=== PATIENT | male | born 1975 | race Caucasian/White ===

== ENCOUNTER 2016-04-06 10:52 | Emergency (ER) | payer SELFPAY ==
--- NOTE | 2016-04-06 11:14 | ER Document Report ---
ED Medical Screen (RME) - General Stated Complaint: HEAD PAIN Notes: pt works in construction, he was helping someone move a ladder when a calking gun fell and hit him in the back of the head. has a visible hematoma denies LOC admits to headache, difficulty concentrating, nausea last tetanus was 2004 TRAVEL OUTSIDE OF THE [place] IN LAST 30 DAYS: No - Related Data Allergies/Adverse Reactions: bees Allergy (Uncoded 04/06/16 11:09) Past Medical History - Immunizations Hx Diphtheria, Pertussis, Tetanus Vaccination: No
[2016-04-06] MEDS ORDERED: KETOROLAC TROMETHAMINE 60 MG/2 ML SDV IM ONE (11:51)
[2016-04-06] MEDS ORDERED: HYDROCODONE/ACETAMINOPHEN 5-325 MG TABLET PO ONE (11:51)
--- NOTE | 2016-04-06 11:58 | ER Document Report ---
Addendum entered and electronically signed by СЕРГЕЙ TUCKER FNP 12:03: Discharge Plan: follow up with PMD Original Note: ED Headache - General Chief Complaint: Head Injury Stated Complaint: HEAD PAIN Mode of Arrival: Ambulatory Information source: Patient TRAVEL OUTSIDE OF THE [place] IN LAST 30 DAYS: No - HPI Patient complains to provider of: Headache, Other - This 40-year-old male presents to the emergency room today stating he has pain to the left or aspect of the occiput after a cough during fell off of a 10 foot ladder striking him in the head he had no loss of consciousness no nausea nor vomiting after the incident.. No: "Migraine", Facial pain Patient reports: No: Brain neoplasm, Congenital anomally, Frequent migraines, Prior CVA, Prior neurologic eval Onset: Just prior to arrival Timing: Better Quality of pain: Achy, Dull - Related Data Allergies/Adverse Reactions: bees Allergy (Uncoded 04/06/16 11:09) Past Medical History - Social History Smoking Status: Current Every Day Smoker Chew tobacco use (# tins/day): No Frequency of alcohol use: Social Drug Abuse: None Family History: Reviewed & Not Pertinent Patient has suicidal ideation: No Patient has homicidal ideation: No Renal/ Medical History: Denies: Hx Peritoneal Dialysis - Immunizations Hx Diphtheria, Pertussis, Tetanus Vaccination: No Review of Systems - Review of Systems Constitutional: No symptoms reported EENT: No symptoms reported, Other - 2 x 3 cm hematoma to the left rear aspect of the occiput.. denies: Eye discharge, Blurred vision, Tearing, Double vision , Vertigo Cardiovascular: No symptoms reported Respiratory: No symptoms reported Gastrointestinal: No symptoms reported Genitourinary: No symptoms reported Male Genitourinary: No symptoms reported Musculoskeletal: No symptoms reported Skin: No symptoms reported Hematologic/Lymphatic: No symptoms reported Neurological/Psychological: No symptoms reported Physical Exam - Vital signs Vitals: Temp Pulse Resp BP Pulse Ox 97.9 F 99 16 176/101 H 98 04/06/16 11:09 04/06/16 11:09 04/06/16 11:09 04/06/16 11:09 04/06/16 11:09 Interpretation: Normal - General General appearance: Appears well, Alert - HEENT Head: Normocephalic, Atraumatic Eyes: Normal Pupils: PERRL - Respiratory Respiratory status: No respiratory distress Chest status: Nontender Breath sounds: Normal Chest palpation: Normal - Cardiovascular Rhythm: Regular Heart sounds: Normal auscultation Murmur: No - Abdominal Inspection: Normal Distension: No distension Bowel sounds: Normal Tenderness: Nontender Organomegaly: No organomegaly - Back Back: Normal, Nontender - Extremities General upper extremity: Normal inspection, Nontender, Normal color, Normal ROM , Normal temperature General lower extremity: Normal inspection, Nontender, Normal color, Normal ROM , Normal temperature, Normal weight bearing. No: Shannon's sign - Neurological Neuro grossly intact: Yes Cognition: Normal Orientation: AAOx4 [place] Coma Scale Eye Opening: Spontaneous [place] Coma Scale Verbal: Oriented [place] Coma Scale Motor: Obeys Commands Magaly Coma Scale Total: 15 Speech: Normal Motor strength normal: LUE, RUE, LLE, RLE Sensory: Normal - Psychological Associated symptoms: Normal affect, Normal mood - Skin Skin Temperature: Warm - 2 x 3 cm hematoma to the liver aspect of the ociput Skin Moisture: Dry Skin Color: Normal Course - Re-evaluation Re-evalutation: 04/06/16 11:56 Patient no loss of consciousness no nausea no vomiting no vertigo does have pain to the left rear aspect of his occiput some light sensitivity no true photophobia no fever no petechiae. - Vital Signs Vital signs: Temp Pulse Resp BP Pulse Ox 97.9 F 99 16 176/101 H 98 04/06/16 11:09 04/06/16 11:09 04/06/16 11:04/06/16 11:04/06/16 11:04/06/16 11:56 - Diagnostic Test Radiology reviewed: Reports reviewed Discharge - Discharge Clinical Impression: sed head injury Condition: Good Disposition: HOME, SELF-CARE Instructions: Head Injury Precautions ([facility]) Additional Instructions: HEADACHE: The physician does not feel that the headache you are experiencing has a serious underlying cause. Most headaches are due to emotional stress, with resultant muscle tension (tension headache). Occasionally, headaches are secondary to changes in the blood vessels of the scalp (vascular headache and migraine headache). Sometimes, a headache is the first symptom of another developing illness, such as a viral infection. You have no evidence of stroke, bleeding, meningitis, or other serious cause of your headache. The treatment of headaches varies with the severity and cause of the pain. Not all headaches need pain shots. In fact, there is evidence that using narcotics for headaches may make them worse in the long run. The physician will determine the therapy that's in your best interest. If you develop a fever, if the headache is different from any you've previously experienced, or if the headache progressively worsens, then call your physician at once or go to the emergency room. TORADOL INJECTION: You have been given an injection of ketorolac tromethamine (Toradol). This is an excellent, safe drug for pain control. It also has potent antiinflammatory action. You should have significant pain relief within about one hour. Toradol is not addicting and is non-sedating. It does not interfere with driving or work. Call or return if you develop itching, hives, shortness of breath, or rash. ORAL NARCOTIC MEDICATION: You have been given a prescription for pain control. This medication is a narcotic. It's best taken with food, as nausea can result if taken on an empty stomach. Don't operate machinery or drive within six hours of taking this medication. Do not combine this medicine with alcohol, or with any medication which can cause sedation (such as cold tablets or sleeping pills) unless you get permission from the physician. Narcotics tend to cause constipation. If possible, drink plenty of fluids and eat a diet high in fiber and fruits. Please be aware that prescription narcotics also have the potential for abuse. People become addicted to these medications because of the general sense of wellbeing that they induce. This feeling along with a significant reduction in tension, anxiety, and aggression provides a stimulating seductive quality to these drugs. Once your pain is under control, we encourage you to discard your unused narcotics. FOLLOW-UP CARE: If you have been referred to a physician for follow-up care, call the physician s office for an appointment as you were instructed or within the next two days. If you experience worsening or a significant change in your symptoms, notify the physician immediately or return to the Emergency Department at any time for re-evaluation. Prescriptions: Hydrocodone/Acetaminophen [Shoals 5-325 Tablet] 1 each PO Q4 PRN #20 tablet PRN Reason: Naproxen Sodium [Naproxen Sodium ER] 500 mg PO Q12 PRN #20 tablet.sa PRN Reason: Forms: Parent Work Note
[2016-04-06 12:28] VITALS: BP 165/101
== END 2016-04-06 12:29 | disposition home or self-care (01) ==
LOC: ER 10:52
DX: S09.90XA Unspecified injury of head, initial encounter (principal); R51 Headache; R05 Cough; W11.XXXA Fall on and from ladder, initial encounter; F17.210 Nicotine dependence, cigarettes, uncomplicated
CPT/HCPCS: 99283; 96372; 70450; J1885

== ENCOUNTER 2017-11-03 15:50 | Emergency (ER) | payer SELFPAY ==
[2017-11-03] MEDS ORDERED: NORMAL SALINE 1000 ML 1,000 ML IV ONE (16:54)
[2017-11-03] MEDS ORDERED: KETOROLAC TROMETHAMINE INJ/PF 30 MG/1 ML SDV IV ONE (16:55)
--- NOTE | 2017-11-03 16:59 | ER Document Report ---
ED Medical Screen (RME) - General Chief Complaint: Flank Pain Stated Complaint: FLANK PAIN Time Seen by Provider: 11/03/17 16:53 Mode of Arrival: Medic Information source: Patient TRAVEL OUTSIDE OF THE [place] IN LAST 30 DAYS: No - HPI Patient complains to provider of: L flank pain Onset: This morning - Pt. with onset of L flank pain and hematuria starting earlier today. Has h/o kidney stones - Related Data Allergies/Adverse Reactions: bees Allergy (Uncoded 11/03/17 15:50) Past Medical History - Social History Chew tobacco use (# tins/day): No Frequency of alcohol use: Rare Drug Abuse: None Renal/ Medical History: Denies: Hx Peritoneal Dialysis - Immunizations Hx Diphtheria, Pertussis, Tetanus Vaccination: No Physical Exam - Vital signs Vitals: Temp Pulse Resp BP Pulse Ox 98.7 F 76 20 179/108 H 96 11/03/17 16:06 11/03/17 16:06 11/03/17 16:06 11/03/17 16:06 11/03/17 16:06 Course - Vital Signs Vital signs: Temp Pulse Resp BP Pulse Ox 98.7 F 76 20 179/108 H 96 11/03/17 16:06 11/03/17 16:06 11/03/17 16:06 11/03/17 16:06 11/03/17 16:06
--- NOTE | 2017-11-03 17:48 | RADIOLOGY REPORT (SQ) ---
EXAM DESCRIPTION: CT LTD RENAL STONE PROTOCOL ON COMPLETED DATE/TIME: 11/03/2017 5:09 pm REASON FOR STUDY: L flank pain COMPARISON: CT abdomen and pelvis 04/29/2010. TECHNIQUE: CT scan of the abdomen and pelvis performed without intravenous or oral contrast. Images reviewed with lung, soft tissue, and bone windows. Reconstructed coronal and sagittal MPR images revi ewed. All images stored on PACS. All CT scanners at this facility use dose modulation, iterative reconstruction, and/or weight based d osing when appropriate to reduce radiation dose to as low as reasonably achievable (ALARA). [facility]: Dose Right [facility]: CareDose [facility]: Dose Right [facility]: Teradose 4D [facility]: [employer] RADIATION DOSE: CT Rad equipment meets quality standard of care and radiation dose reduction techniq ues were employed. CTDIvol: 19.2 mGy. DLP: 1178 mGy-cm.mGy. LIMITATIONS: None. FINDINGS: Stone CT LOWER CHEST: No consolidation or pleural effusion. NON-CONTRASTED LIVER, SPLEEN, ADRENALS: Evaluation limited by lack of IV contrast. No identified sign ificant masses. The liver is enlarged measuring 24.3 cm in craniocaudal dimension. PANCREAS: No peripancreatic inflammatory changes. GALLBLADDER: No identified stones by CT criteria. No inflammatory changes to suggest cholecystitis. RIGHT KIDNEY AND URETER: Assessment for masses limited by lack of IV contrast. No significant calci fications. No hydronephrosis or hydroureter. LEFT KIDNEY AND URETER: Assessment for masses limited by lack of IV contrast. There is mild left hy droureteronephrosis. A 5 x 4 mm (528 Hounsfield units) calculus is seen at the distal left ureter in the pelvis. AORTA AND RETROPERITONEUM: No abdominal aortic aneurysm. No retroperitoneal masses or hemorrhage. BOWEL AND PERITONEAL CAVITY: No dilated bowel loops or inflammatory changes. There is scattered colo piero diverticulosis with no CT evidence of acute diverticulitis. No free fluid. APPENDIX: Normal. PELVIS, BLADDER, AND ABDOMINAL WALL:No pelvic mass. No free fluid. Bladder partially distended. BONES: Multilevel degenerative changes at the spine. IMPRESSION: 1. Left-sided obstructive uropathy with mild hydroureteronephrosis and a 5 mm calculus at the distal left ureter. 2. Hepatomegaly. 3. Mild colonic diverticulosis. COMMENT: Quality ID # [id number]: Final reports with documentation of one or more dose reduction techniques (e.g., Automated exposure control, adjustment of the mA and/or kV according to patient size, use of iterative reconstruction technique) TECHNICAL DOCUMENTATION: JOB ID: [id number] 2010 [employer]- All Rights Reserved Reading location - IP/workstation name: [email or web address]
--- NOTE | 2017-11-03 19:34 | ER Document Report ---
ED GI/ - General Chief Complaint: Flank Pain Stated Complaint: FLANK PAIN Time Seen by Provider: 11/03/17 16:53 Mode of Arrival: Medic Notes: Patient is a 42-year-old male comes emergency department for chief complaint of left flank pain radiating around to his left mid to lower abdomen and vomiting that started earlier today. He states he is passed multiple kidney stones in the past including one a few days ago but the pain and vomiting persisted so he became concerned. He was given Toradol, he denies any current symptoms. He states that after vomiting a few times he vomited once and saw a few specks of blood in the emesis. He denies any fever or chills. He does have some hematuria. He denies any surgeries, only other past medical history reported is hypertension. TRAVEL OUTSIDE OF THE [place] IN LAST 30 DAYS: No - Related Data Allergies/Adverse Reactions: bees Allergy (Uncoded 11/03/17 16:56) Past Medical History - General Information source: Patient - Social History Smoking Status: Current Every Day Smoker Chew tobacco use (# tins/day): No Frequency of alcohol use: Rare Drug Abuse: None Lives with: Family Family History: Reviewed & Not Pertinent Patient has suicidal ideation: No Patient has homicidal ideation: No Renal/ Medical History: Reports: Hx Kidney Stones. Denies: Hx Peritoneal Dialysis Surgical Hx: Negative - Immunizations Immunizations up to date: Yes Hx Diphtheria, Pertussis, Tetanus Vaccination: Yes Review of Systems - Review of Systems Constitutional: No symptoms reported EENT: No symptoms reported Cardiovascular: No symptoms reported Respiratory: No symptoms reported Gastrointestinal: See HPI Genitourinary: See HPI Male Genitourinary: No symptoms reported Musculoskeletal: No symptoms reported Skin: No symptoms reported Hematologic/Lymphatic: No symptoms reported Neurological/Psychological: No symptoms reported Physical Exam - Vital signs Vitals: Temp Pulse Resp BP Pulse Ox 98.7 F 76 20 179/108 H 96 11/03/17 16:06 11/03/17 16:06 11/03/17 16:06 11/03/17 16:06 11/03/17 16:06 - Notes Notes: GENERAL: Alert, interacts well. No acute distress. HEAD: Normocephalic, atraumatic. EYES: Pupils equal, round, and reactive to light. Extraocular movements intact. ENT: Oral mucosa moist, tongue midline. NECK: Full range of motion. Supple. Trachea midline. LUNGS: Clear to auscultation bilaterally, no wheezes, rales, or rhonchi. No respiratory distress. HEART: Regular rate and rhythm. No murmur ABDOMEN: Soft, non-tender. Non-distended. Bowel sounds present in all 4 quadrants. EXTREMITIES: Moves all 4 extremities spontaneously. No edema, normal radial and dorsalis pedis pulses bilaterally. No cyanosis. BACK: no cervical, thoracic, lumbar midline tenderness. No saddle anesthesia, normal distal neurovascular exam. NEUROLOGICAL: Alert and oriented x3. Normal speech. [cranial nerves II through XII grossly intact]. PSYCH: Normal affect, normal mood. SKIN: Warm, dry, normal turgor. No rashes or lesions noted. Course - Re-evaluation Re-evalutation: On my evaluation patient sitting up on the bed, talkative, well-appearing, no signs of distress. No overt CVA tenderness. Soft nontender abdomen. Vital signs show hypertension, no tachycardia, no fever. Patient missed his blood pressure medications earlier, states he will take them when he goes home. Urinalysis shows hematuria, no bacteria, nitrates, leukocyte esterase to suggest infection. BMP unremarkable. CAT scan from triage showing left-sided ureterolithiasis in the distal ureter with some hydroureter and hydronephrosis on the same side. - Vital Signs Vital signs: Temp Pulse Resp BP Pulse Ox 97.9 F 75 20 162/102 H 98 11/03/17 20:30 11/03/17 20:30 11/03/17 16:06 11/03/17 20:30 11/03/17 20:30 - Laboratory Result Diagrams: 11/03/17 18:25 Laboratory results interpreted by me: 11/03/17 11/03/17 18:25 19:17 Sodium 145.5 H Chloride 110 H Urine Protein 100 H Urine Blood LARGE H Discharge - Discharge Clinical Impression: Left flank pain, Ureterolithiasis Abdominal pain Qualifiers: Abdominal location: generalized Qualified Code(s): R10.84 - Generalized abdominal pain Vomiting Qualifiers: Vomiting type: unspecified Vomiting Intractability: non-intractable Nausea presence: with nausea Qualified Code(s): R11.2 - Nausea with vomiting, unspecified Disposition: HOME, SELF-CARE Additional Instructions: You are passing a 5 mm kidney stone on the left side. Take pain medication as prescribed, ibuprofen along with this can help, take nausea medication if needed, drink plenty of fluids. Follow-up with the urology referral listed below. Call Sunday. Return if you worsen including fever of 100.4 or greater, severe pain, uncontrolled vomiting, or any other concerning or worsening symptoms. [facility] [address] [place], [place] [id number] Prescriptions: Morphine Sulfate [Morphine Ir 15 Mg Tablet] 15 mg PO Q4HP PRN #20 tablet PRN Reason: Promethazine HCl [Phenergan 25 mg Tablet] 25 mg PO Q6H PRN #20 tablet PRN Reason: Forms: Elevated Blood Pressure
[2017-11-03 19:45] LABS: ANION GAP 14 (5-19); BLOOD UREA NITROGEN 19 mg/dL (7-20); CALCIUM 9.4 mg/dL (8.4-10.2); CARBON DIOXIDE 22 mmol/L (22-30); CHLORIDE 110 mmol/L (98-107); GLUCOSE 99 mg/dL (75-110); POTASSIUM 4.6 mmol/L (3.6-5.0); SODIUM 145.5 mmol/L (137-145)
[2017-11-03 20:07] LABS: APPEARANCE,URINE CLEAR; BILIRUBIN,URINE NEGATIVE (NEGATIVE); COLOR,URINE YELLOW; GLUCOSE, URINE NEGATIVE (NEGATIVE); KETONES,URINE NEGATIVE (NEGATIVE); LEUKOCYTE ESTERASE,URINE NEGATIVE (NEGATIVE); NITRITE,URINE NEGATIVE (NEGATIVE); PROTEIN,URINE 100 mg/dL (NEGATIVE); URINE SPECIFIC GRAVITY 1.016; UROBILINOGEN,URINE NEGATIVE mg/dL (<2.0)
[2017-11-03] MEDS ORDERED: ONDANSETRON ODT 4 MG TAB (6 TAB/ER DISP) PO PRN (20:15)
[2017-11-03] MEDS ORDERED: HYDROCODONE/ACETAMINOPHEN 5-325 MG (6 TAB/ER DISP) PO PRN (20:16)
[2017-11-03 20:40] VITALS: BP 162/102
== END 2017-11-03 20:37 | disposition home or self-care (01) ==
LOC: ER 15:50
DX: N13.2 Hydronephrosis with renal and ureteral calculous obstruction (principal); R11.2 Nausea with vomiting, unspecified; R10.84 Generalized abdominal pain; R31.9 Hematuria, unspecified; I10 Essential (primary) hypertension; F17.200 Nicotine dependence, unspecified, uncomplicated; Z91.030 Bee allergy status; Z79.899 Other long term (current) drug therapy
CPT/HCPCS: 99284; 96361; 96374; 36415; 80048; 81001; 76380; J1885; J7030

== ENCOUNTER 2018-06-15 07:37 | Inpatient (IN) | payer SELFPAY ==
[2018-06-15] MEDS ORDERED: NORMAL SALINE 1000 ML 1,000 ML IV ONE (08:34)
[2018-06-15] MEDS ORDERED: KETOROLAC TROMETHAMINE INJ/PF 30 MG/1 ML SDV IV ONE (08:34)
[2018-06-15] MEDS ORDERED: ONDANSETRON HCL INJ/PF 4 MG/2 ML SDV IV ONE (08:39)
--- NOTE | 2018-06-15 09:16 | ER Document Report ---
ED General - General Chief Complaint: Abdominal Pain Stated Complaint: ABDOMINAL PAIN Time Seen by Provider: 06/15/18 08:33 TRAVEL OUTSIDE OF THE [place] IN LAST 30 DAYS: No - HPI Notes: Patient is a 43-year-old male that presents to the emergency department for chief complaint of abdominal pain. Patient reports gradual onset of right lower quadrant abdominal pain that began yesterday. He states it is getting more severe in nature. He denies any radiation of his pain into his back or lower abdomen. He denies fevers but does report associated nausea and vomiting. Patient has not had any associated diarrhea. He does have a history of kidney stones and states this feels different because there is no radiation to his back. He does state that he had some increased pain with movement and bumps in the road on the car ride in. Patient has not taken any medication for pain. He denies any urinary complaints Past Medical History: Hypertension, kidney stones Past Surgical History: Negative Social History: Daily tobacco, rare alcohol, denies drug use Family History: Reviewed and noncontributory for presenting illness Allergies: Reviewed, see documented allergy list. REVIEW OF SYSTEMS: CONSTITUTIONAL : No fever No chills No diaphoresis No recent illness EENT: No vision changes No congestion No sore throat CARDIOVASCULAR: No chest pain No palpitations RESPIRATORY: No shortness of breath No cough No difficulty breathing GASTROINTESTINAL: abdominal pain nausea vomiting No diarrhea GENITOURINARY: No dysuria No hematuria No difficulty urinating MUSCULOSKELETAL: No back pain No leg pain No arm pain SKIN: No rashes No lesions LYMPHATIC: No swollen, enlarged glands. NEUROLOGICAL: No lightheadedness No headache No weakness No paresthesias PSYCHIATRIC: No anxiety No depression PHYSICAL EXAMINATION: Vital signs reviewed, nursing noted reviewed. GENERAL: Appears uncomfortable, well-nourished HEAD: Atraumatic, normocephalic. EYES: Eyes appear normal, extraocular movements intact, sclera anicteric, conjunctiva are normal. ENT: nares patent, oropharynx clear without exudates. Moist mucous membranes. NECK: Normal range of motion, supple without lymphadenopathy LUNGS: Breath sounds clear to auscultation bilaterally and equal. No wheezes rales or rhonchi. HEART: Regular rate and rhythm without murmurs ABDOMEN: No CVA tenderness bilaterally, abdomen soft, right lower quadrant tenderness, pain with heel strike, normoactive bowel sounds. No rebound, guarding, or rigidity. No masses appreciated. EXTREMITIES: Nontender, good range of motion, no pitting or edema. NEUROLOGICAL: No focal neurological deficits. Moves all extremities spontaneously Motor and sensory grossly intact on exam. PSYCH: Normal mood, normal affect. SKIN: Warm, Dry, normal turgor, no rashes or lesions noted on exposed skin - Related Data Allergies/Adverse Reactions: bees Allergy (Uncoded 06/15/18 07:40) Past Medical History - Social History Smoking Status: Current Every Day Smoker Family History: Reviewed & Not Pertinent Renal/ Medical History: Reports: Hx Kidney Stones. Denies: Hx Peritoneal Dialysis - Immunizations Immunizations up to date: Yes Hx Diphtheria, Pertussis, Tetanus Vaccination: Yes Physical Exam - Vital signs Vitals: Temp Pulse Resp BP Pulse Ox 98.0 F 89 16 173/99 H 97 06/15/18 07:42 06/15/18 07:42 06/15/18 07:42 06/15/18 07:42 06/15/18 07:42 Course - Re-evaluation Re-evalutation: 06/15/18 11:32 Vitals reviewed. Nursing notes reviewed. Patient received Toradol for pain and reports significant symptom medic improvement. He does have a leukocytosis of 12 and acute appendicitis on CT scan. Patient's care was discussed with Dr. Harmon who will evaluate him in the emergency room and admit the patient for further management. Patient did receive Zosyn for his acute appendicitis in the ER. He was offered repeat dosing of pain medicine but states he is currently comfortable. Laboratory 06/15/18 06/15/18 06/15/18 08:57 09:44 10:50 WBC 12.7 H RBC 5.00 Hgb 15.0 Hct 43.0 MCV 86 MCH 30.0 MCHC 34.9 RDW 12.9 Plt Count 212 Seg Neutrophils % 81.7 H Lymphocytes % 9.7 L Monocytes % 8.3 Eosinophils % 0.0 Basophils % 0.3 Absolute Neutrophils 10.4 H Absolute Lymphocytes 1.2 Absolute Monocytes 1.1 Absolute Eosinophils 0.0 Absolute Basophils 0.0 Sodium 138.2 Potassium 4.5 Chloride 104 Carbon Dioxide 22 Anion Gap 12 BUN 19 Creatinine 0.79 Est GFR ( Amer) > 60 Est GFR (Non-Af Amer) > 60 Glucose 126 H Calcium 9.9 Total Bilirubin 0.9 Direct Bilirubin 0.4 Neonat Total Bilirubin Not Reportable Neonat Direct Bilirubin Not Reportable Neonat Indirect Bili Not Reportable AST 61 H ALT 134 H Alkaline Phosphatase 87 Total Protein 8.1 Albumin 4.5 Urine Color YELLOW Urine Appearance CLEAR Urine pH 6.0 Ur Specific Avant 1.047 Urine Protein 30 H Urine Glucose (UA) NEGATIVE Urine Ketones NEGATIVE Urine Blood NEGATIVE Urine Nitrite NEGATIVE Urine Bilirubin NEGATIVE Urine Urobilinogen NEGATIVE Ur Leukocyte Esterase NEGATIVE Urine WBC (Auto) 3 Urine RBC (Auto) 2 Squamous Epi Cells Auto <1 Urine Mucus (Auto) FEW Urine Ascorbic Acid NEGATIVE Abdomen/Pelvis CT 06/15/18 08:39 IMPRESSION: 1. Acute appendicitis with no evidence of periappendiceal abscess or overt ru pture. 2. Fatty liver. - Vital Signs Vital signs: Temp Pulse Resp BP Pulse Ox 98.4 F 93 17 173/97 H 100 06/15/18 11:01 06/15/18 11:01 06/15/18 11:01 06/15/18 11:01 06/15/18 11:01 - Laboratory Result Diagrams: 06/15/18 09:44 06/15/18 08:57 Laboratory results interpreted by me: 06/15/18 06/15/18 06/15/18 08:57 09:44 10:50 WBC 12.7 H Seg Neutrophils % 81.7 H Lymphocytes % 9.7 L Absolute Neutrophils 10.4 H Glucose 126 H AST 61 H ALT 134 H Urine Protein 30 H Discharge - Discharge Clinical Impression: Acute appendicitis Qualifiers: Acute appendicitis type: other Qualified Code(s): K35.890 - Other acute appendicitis without perforation or gangrene; K35.89 - Other acute appendicitis Condition: Stable Disposition: ADMITTED INPATIENT Admitting Provider: Surgicalist Unit Admitted: Surgical Floor
[2018-06-15 10:01] LABS: ABSOLUTE LYMPHOCYTES (AUTO) 1.2 10^3/uL (0.5-4.7); ABSOLUTE MONOCYTES (AUTO) 1.1 10^3/uL (0.1-1.4); ABSOLUTE NEUT (AUTO) 10.4 10^3/uL (1.7-8.2); BASOPHILS % (AUTO) 0.3 % (0-2); LYMPHOCYTES % (AUTO) 9.7 % (13-45); MEAN CORPUSCULAR HGB CONC 34.9 g/dL (32.0-36.0); MEAN CORPUSCULAR VOLUME 86 fl (80-97); MONOCYTES % (AUTO) 8.3 % (3-13); PLATELET COUNT 212 10^3/uL (150-450); RED CELL DISTRIBUTION WIDTH 12.9 % (11.5-14.0); SEGMENTED NEUTROPHILS % (AUTO) 81.7 % (42-78); TOTAL CELLS COUNTED % (AUTO) 100 %; WHITE BLOOD COUNT 12.7 10^3/uL (4.0-10.5)
[2018-06-15 10:03] LABS: ALANINE AMINOTRANSFERASE 134 U/L (21-72); ALBUMIN 4.5 g/dL (3.5-5.0); ALKALINE PHOSPHATASE 87 U/L (38-126); ANION GAP 12 (5-19); ASPARTATE AMINO TRANSFERASE 61 U/L (17-59); BILIRUBIN,DIRECT 0.4 mg/dL (0.0-0.4); BILIRUBIN,TOTAL 0.9 mg/dL (0.2-1.3); BLOOD UREA NITROGEN 19 mg/dL (7-20); CALCIUM 9.9 mg/dL (8.4-10.2); CARBON DIOXIDE 22 mmol/L (22-30); CHLORIDE 104 mmol/L (98-107); GLUCOSE 126 mg/dL (75-110); POTASSIUM 4.5 mmol/L (3.6-5.0); SODIUM 138.2 mmol/L (137-145); TOTAL PROTEIN 8.1 g/dL (6.3-8.2)
[2018-06-15] MEDS ORDERED: ONDANSETRON HCL INJ/PF 4 MG/2 ML SDV ONE (10:15)
[2018-06-15] MEDS ORDERED: SUCCINYLCHOLINE CHLORIDE INJ 200 MG/10 ML VIAL ONE (10:15)
[2018-06-15] MEDS ORDERED: NEOSTIGMINE METHYLSULFATE 10 MG/10 ML VIAL ONE (10:15)
[2018-06-15] MEDS ORDERED: DEXAMETHASONE SOD PHOSPHATE INJ 4 MG/1 ML VIAL ONE (10:15)
[2018-06-15] MEDS ORDERED: ROCURONIUM BROMIDE INJ 50 MG/5 ML VIAL IV ONE (10:15)
[2018-06-15] MEDS ORDERED: METOCLOPRAMIDE HCL INJ/PF 10 MG/2 ML SDV ONE (10:15)
[2018-06-15] MEDS ORDERED: GLYCOPYRROLATE 1 MG/5 ML SYRINGE ONE (10:15)
[2018-06-15] MEDS ORDERED: LIDOCAINE 2% INJ-PF (20 MG/ML) 2 ML AMPUL ONE (10:15)
[2018-06-15] MEDS ORDERED: KETOROLAC TROMETHAMINE 60 MG/2 ML SDV ONE (10:15)
--- NOTE | 2018-06-15 11:11 | RADIOLOGY REPORT (SQ) ---
EXAM DESCRIPTION: CT ABD/PELVIS WITH IV ONLY COMPLETED DATE/TIME: 06/15/2018 10:27 am REASON FOR STUDY: RLQ pain COMPARISON: None. TECHNIQUE: CT scan of the abdomen and pelvis performed using helical scanning technique with dynamic intravenous contrast injection. No oral contrast. Images reviewed with lung, soft tissue, and bone windows. Reconstructed coronal and sagittal MPR images reviewed. Delayed images for evaluation of the urinary system also acquired. All images stored on PACS. All CT scanners at this facility use dose modulation, iterative reconstruction, and/or weight based d osing when appropriate to reduce radiation dose to as low as reasonably achievable (ALARA). [facility]: Dose Right [facility]: CareDose [facility]: Dose Right [facility]: Teradose 4D [facility]: Terrafugia CONTRAST TYPE AND DOSE: contrast/concentration: Isovue 350.00 mg/ml; Total Contrast Delivered: 100.0 ml; Total Saline Delivered: 72.0 ml RENAL FUNCTION: Within normal limits. RADIATION DOSE: CT Rad equipment meets quality standard of care and radiation dose reduction techniq ues were employed. CTDIvol: 21.1 - 28.9 mGy. DLP: 3023 mGy-cm.. LIMITATIONS: None. FINDINGS: LOWER CHEST: No significant findings. No nodules or infiltrates. LIVER: Diffusely fatty. Mild sparing close to the gallbladder fossa. SPLEEN: Normal size. No focal lesions. PANCREAS: No masses. No significant calcifications. No adjacent inflammation or peripancreatic fluid collections. Pancreatic duct not dilated. GALLBLADDER: No identified stones by CT criteria. No inflammatory changes to suggest cholecystitis. ADRENAL GLANDS: No significant masses or asymmetry. RIGHT KIDNEY AND URETER: No solid masses. No significant calcification. No hydronephrosis or hydroure ter. LEFT KIDNEY AND URETER: No solid masses. No significant calcification. No hydronephrosis or hydrouret er. AORTA AND VESSELS: No aneurysm. No dissection. Renal arteries, SMA, celiac without stenosis. RETROPERITONEUM: No retroperitoneal adenopathy, hemorrhage or masses. BOWEL AND PERITONEAL CAVITY: No masses or inflammatory changes. No free fluid or peritoneal masses. APPENDIX: Abnormal. PELVIS: Enhancing thick-walled appearance with surrounding inflammatory changes and non loculated david ma/ fluid. No discrete abscess. No free perforation. ABDOMINAL WALL: No masses. No hernias. BONES: Spondylosis. No fracture or worrisome lesion. OTHER: No other significant finding. IMPRESSION: 1. Acute appendicitis with no evidence of periappendiceal abscess or overt rupture. 2. Fatty liver. TECHNICAL DOCUMENTATION: JOB ID: [id number] Quality ID # [id number]: Final reports with documentation of one or more dose reduction techniques (e.g., Au tomated exposure control, adjustment of the mA and/or kV according to patient size, use of iterative reconstruction technique) 2010 [employer]- All Rights Reserved Reading location - IP/workstation name: [email or web address]
[2018-06-15 11:14] LABS: APPEARANCE,URINE CLEAR; BILIRUBIN,URINE NEGATIVE (NEGATIVE); COLOR,URINE YELLOW; GLUCOSE, URINE NEGATIVE (NEGATIVE); KETONES,URINE NEGATIVE (NEGATIVE); LEUKOCYTE ESTERASE,URINE NEGATIVE (NEGATIVE); NITRITE,URINE NEGATIVE (NEGATIVE); PROTEIN,URINE 30 mg/dL (NEGATIVE); URINE SPECIFIC GRAVITY 1.047; UROBILINOGEN,URINE NEGATIVE mg/dL (<2.0)
[2018-06-15] MEDS ORDERED: PIPERACILLIN/TAZOBACTAM 3.375 GM VIAL IV ONE (11:31)
--- NOTE | 2018-06-15 12:09 | PDOC H&P ---
History of Present Illness Admission Date/PCP: 06/15/18 11:41 History of Present Illness: LICHA VERDIN is a 43 year old male presents to the emergency department for chief complaint of abdominal pain. Patient reports gradual onset of right lower quadrant abdominal pain that began yesterday. He states it is getting more severe in nature. He denies any radiation of his pain into his back or lower abdomen. He denies fevers but does report associated nausea and vomiting. Patient has not had any associated diarrhea. He does have a history of kidney stones and states this feels di fferent because there is no radiation to his back. He does state that he had some increased pain with movement and bumps in the road on the car ride in. Past Surgical History Past Surgical History: Reports: None Social History Smoking Status: Current Every Day Smoker Family History Family History: Reviewed & Not Pertinent Parental Family History Reviewed: No Children Family History Reviewed: No Sibling(s) Family History Reviewed.: No Medication/Allergy Home Medications: Doxycycline Hyclate [Vibramycin 100 mg Tablet] 100 mg PO BID #20 tablet 11/23/11 Guaifenesin [Guaifenesin ER] 1,200 mg PO BID #20 tab.sr.12h 11/23/11 Hydrocodone Bit/Acetaminophen [Vicodin 5-500 mg Tablet] 1 - 2 tab PO ASDIR PRN #15 tablet 11/23/11 No Home Medications 1 11/23/11 Oxycodone HCl/Acetaminophen [Percocet 5-325 mg Tablet] 1 - 2 tab PO Q4H PRN #25 tablet 02/22/14 Penicillin V Potassium [Penicillin Vk 500 mg Tablet] 500 mg PO BID #20 tablet 02/22/14 Hydrocodone/Acetaminophen [[place] 5-325 Tablet] 1 each PO Q4 PRN #20 tablet 04/06/16 Naproxen Sodium [Naproxen Sodium ER] 500 mg PO Q12 PRN #20 tablet.sa 04/06/16 Morphine Sulfate [Morphine Ir 15 Mg Tablet] 15 mg PO Q4HP PRN #20 tablet 11/03/17 Promethazine HCl [Phenergan 25 mg Tablet] 25 mg PO Q6H PRN #20 tablet 11/03/17 Allergies/Adverse Reactions: bees Allergy (Uncoded 06/15/18 07:40) Review of Systems Constitutional: PRESENT: anorexia Eyes: PRESENT: as per HPI Cardiovascular: PRESENT: other - no chest pain Respiratory: PRESENT: cough - denies cough Gastrointestinal: PRESENT: other - rt lower quadrent abd pain Genitourinary: PRESENT: other - no dysuria Musculoskeletal: PRESENT: other - no back pain Integumentary: PRESENT: rash - no rash or prutitus Neurological: PRESENT: other - no c/o generalized weakness or tremors Endocrine: PRESENT: other - no cold or heat intolerance Hematologic/Lymphatic: PRESENT: other - no easy brusing. Physical Exam Vital Signs: Temp Pulse Resp BP Pulse Ox 98.4 F 93 17 173/97 H 100 06/15/18 11:01 06/15/18 11:01 06/15/18 11:01 06/15/18 11:01 06/15/18 11:01 Intake & Output 06/14/18 06/15/18 06/16/18 06:59 06:59 06:59 Intake Total 1000 Balance 1000 Weight 133.6 kg General appearance: PRESENT: mild distress Head exam: PRESENT: normocephalic Eye exam: PRESENT: EOMI Mouth exam: PRESENT: dry mucosa Neck exam: PRESENT: full ROM Respiratory exam: PRESENT: clear to auscultation nelida Cardiovascular exam: PRESENT: RRR Pulses: PRESENT: normal radial pulses, normal femoral pulses Vascular exam: PRESENT: normal capillary refill GI/Abdominal exam: PRESENT: other - morbidly obese tender with rebound in rlq Rectal exam: PRESENT: deferred Extremities exam: PRESENT: full ROM Musculoskeletal exam: PRESENT: full ROM Neurological exam: PRESENT: alert, awake, oriented to person, oriented to place, oriented to time, oriented to situation Skin exam: PRESENT: dry Results Laboratory Results: 06/15/18 09:44 06/15/18 08:57 06/15/18 06/15/18 06/15/18 08:57 09:44 10:50 WBC 12.7 H RBC 5.00 Hgb 15.0 Hct 43.0 MCV 86 MCH 30.0 MCHC 34.9 RDW 12.9 Plt Count 212 Seg Neutrophils % 81.7 H Lymphocytes % 9.7 L Monocytes % 8.3 Eosinophils % 0.0 Basophils % 0.3 Absolute Neutrophils 10.4 H Absolute Lymphocytes 1.2 Absolute Monocytes 1.1 Absolute Eosinophils 0.0 Absolute Basophils 0.0 Sodium 138.2 Potassium 4.5 Chloride 104 Carbon Dioxide 22 Anion Gap 12 BUN 19 Creatinine 0.79 Est GFR ( Amer) > 60 Est GFR (Non-Af Amer) > 60 Glucose 126 H Calcium 9.9 Total Bilirubin 0.9 AST 61 H ALT 134 H Alkaline Phosphatase 87 Total Protein 8.1 Albumin 4.5 Urine Color YELLOW Urine Appearance CLEAR Urine pH 6.0 Ur Specific Castella 1.047 Urine Protein 30 H Urine Glucose (UA) NEGATIVE Urine Ketones NEGATIVE Urine Blood NEGATIVE Urine Nitrite NEGATIVE Ur Leukocyte Esterase NEGATIVE Urine WBC (Auto) 3 Urine RBC (Auto) 2 Impressions: Abdomen/Pelvis CT 06/15/18 08:39 IMPRESSION: 1. Acute appendicitis with no evidence of periappendiceal abscess or overt rupture. 2. Fatty liver. Status: Image reviewed by mt - ct reviewed byme. c/w acute appendicitis Assessment & Plan - Diagnosis (1) Acute appendicitis Qualifiers: Acute appendicitis type: other Qualified Code(s): K35.890 - Other acute appendicitis without perforation or gangrene; K35.89 - Other acute appendicitis - Plan Summary Plan Summary: acute appendicitis to or for laparoscopic appendectomy risks benifitis discussed including bleeding, infection, abscess injury to adjacent organs, need for open s;urgery need for additional surgery ureter injuriy pt understands and agrees to proceed.
[2018-06-15] MEDS ORDERED: MORPHINE SULFATE 10 MG/ML INJ IV PRN (12:36)
[2018-06-15] MEDS ORDERED: BUPIVACAINE HCL 0.25% /EPINEPHRINE INJ/PF 30 ML SDV ONE (12:36)
[2018-06-15] MEDS ORDERED: HYDROMORPHONE HCL INJ/PF 2 MG/ML AMPULE ONE (13:05)
[2018-06-15] MEDS ORDERED: FENTANYL CITRATE INJ/PF 100 MCG/2 ML AMPUL ONE (13:05)
[2018-06-15] MEDS ORDERED: MIDAZOLAM 2 MG/2 ML INJ ONE (13:05)
[2018-06-15] MEDS ORDERED: PROPOFOL INJ 200 MG/20 ML VIAL IV ONE (13:06)
[2018-06-15] MEDS ORDERED: ACETAMINOPHEN 1,000 MG/100 ML RTUPB IV ONE (13:06)
[2018-06-15] MEDS ORDERED: EPHEDRINE SULFATE INJ 50 MG/1 ML AMPULE ONE (13:06)
[2018-06-15] MEDS ORDERED: FENTANYL CITRATE INJ/PF 100 MCG/2 ML AMPUL IV PRN ×3 (14:03)
[2018-06-15] MEDS ORDERED: ONDANSETRON HCL INJ/PF 4 MG/2 ML SDV IV PRN (14:03)
[2018-06-15] MEDS ORDERED: DIPHENHYDRAMINE HCL 50 MG/ML VIAL IV PRN (14:03)
[2018-06-15] MEDS ORDERED: MEPERIDINE HCL/PF INJ 25 MG/1 ML DISP.SYRIN IV PRN (14:03)
[2018-06-15] MEDS ORDERED: LABETALOL HCL INJ 20 MG/4 ML DISP.SYRIN IV PRN (14:03)
[2018-06-15] MEDS ORDERED: OXYCODONE-ACETAMINOPHEN 5-325 MG TABLET PO PRN ×3 (14:03→14:49)
[2018-06-15] MEDS ORDERED: PROMETHAZINE HCL INJ 25 MG/1 ML VIAL IV PRN ×2 (14:03)
--- NOTE | 2018-06-15 14:45 | Operative Report ---
Operative Report DATE OF SURGERY: 06/15/18 PREOPERATIVE DIAGNOSIS: acute appendicitis POSTOPERATIVE DIAGNOSIS: appendiciits OPERATION: laparoscopic appendectomy SURGEON: DOMINIQUE GRAHAM ANESTHESIA: GA TISSUE REMOVED OR ALTERED: appendix COMPLICATIONS: none ESTIMATED BLOOD LOSS: 10cc INTRAOPERATIVE FINDINGS: acute appendicits PROCEDURE: see dictation
--- NOTE | 2018-06-15 14:48 | Discharge Summary ---
Discharge Summary (SDC) - Discharge Final Diagnosis: acute appendicitis Date of Surgery: 06/15/18 Condition: Good Treatment or Instructions: cont oral antibiotics till done f/u with Dr Harmon 7-10 days light diet for 48hrs lots of clear liqids Discharge Diet: As Tolerated Discharge Activity: Activity As Tolerated Report the Following to Your Physician Immediately: Shortness of Breath, Nausea, Vomiting, Increase in Pain, Fever over 101 Degrees - ok to dc from pacu.
[2018-06-15 16:27] VITALS: BP 171/73
--- NOTE | 2018-06-19 09:39 | OPERATIVE REPORT E ---
Operative Report NAME: LICHA VERDIN : 1975 AGE: 43Y DATE OF SURGERY: 06/15/2018 ROOM: ED16W PREOPERATIVE DIAGNOSIS: Acute appendicitis. POSTOPERATIVE DIAGNOSIS: Acute appendicitis. OPERATION: Laparoscopic appendectomy. SURGEON: DOMINIQUE GRAHAM M.D. ANESTHESIA: General. PROCEDURE: The patient was brought to the operating room in awake, alert, and stable condition, placed on the operating table in supine position, induced under general anesthesia, and intubated. The abdomen was prepped and draped in the usual sterile manner for the procedure. A Veress needle was placed into the umbilicus and the abdomen was insufflated with 6 L of CO2 gas. An infraumbilical 5 mm incision was made with a 15 blade and a 5 mm port placed in the abdominal cavity. Intra-abdominal visualization revealed no evidence of Veress needle or trocar injury. A left lower quadrant 12 mm port was placed under direct vision and a 5 mm suprapubic port. The appendix was identified. It was placed on traction. The mesoappendix was divided with 1 firing of the EndoGIA stapler with a vascular load, and then we came across the base of the appendix on the cecum with 1 firing of the EndoGIA stapler with a blue load. The appendix was placed in an Endobag and removed through the left lower quadrant port site. The right lower quadrant was irrigated with normal saline and suctioned dry. Hemostasis was noted to be intact. The ports were then removed. The left lower quadrant fascial defect was closed with 0 Vicryl, and all 3 skin incisions were closed with intracuticular 4-0 Biosyn. Steri-Strips completed the procedure. Estimated blood loss was 10 mL. Sponge and needle counts were correct x2. The patient was awakened in the operating room, extubated, and transferred to recovery room in stable condition, no complications. DICTATING PHYSICIAN: DOMINIQUE GRAHAM M.D. [id number] PHY#: [id number] ID: [id number] JOB#: [id number] ACCT: [id number] cc:DOMINIQUE GRAHAM M.D. >
== END 2018-06-16 08:55 | disposition home or self-care (01) | DRG 343 ==
LOC: ER 07:37 → EH 11:41
PROVIDERS: ADMIT Surgery; ATTEND Surgery
PROC: 0DTJ4ZZ Resection of Appendix, Percutaneous Endoscopic Approach (ICD-10-PCS; principal; 2018-06-15 13:00)
DX: K35.891 Other acute appendicitis without perforation, with gangrene (principal); I10 Essential (primary) hypertension; F17.210 Nicotine dependence, cigarettes, uncomplicated
CPT/HCPCS: 36415; 74177; 80053; 81001; 840; 85025; 88304; 96361; 96374; 96375; 99285; J0131; J0330; J1100; J1170; J1885; J2250; J2270; J2405; J2543; J2704; J2765; J3010; J3490; J7030

== ENCOUNTER 2019-03-09 08:54 | Emergency (ER) | payer SELFPAY ==
--- NOTE | 2019-03-09 11:14 | ER Document Report ---
ED General - General Chief Complaint: Cough Stated Complaint: COUGH,CONGESTION,SINUS ISSUES Time Seen by Provider: 03/09/19 11:04 Primary Care Provider: BECKY TURNER MD [Primary Care Provider] - Follow up as needed TRAVEL OUTSIDE OF THE [place] IN LAST 30 DAYS: No - HPI Notes: 43 year old male to the ED with C/O cough, fatigue that began about one week ago and has not gotten better. Admits to poor sleep, hacking cough, slight SOB. States that his has been sick with the same and she has gotten better. He admits to subjective fevers and chills. Denies any other complaints. - Related Data Allergies/Adverse Reactions: bees Allergy (Uncoded 03/09/19 09:30) Home Medications: lisinopril. hctz Past Medical History - General Information source: Patient, Relative - Social History Smoking Status: Current Every Day Smoker Chew tobacco use (# tins/day): No Frequency of alcohol use: None Drug Abuse: None Family History: Reviewed & Not Pertinent Patient has suicidal ideation: No Patient has homicidal ideation: No Renal/ Medical History: Reports: Hx Kidney Stones. Denies: Hx Peritoneal Dialysis Past Surgical History: Reports: Hx Appendectomy - Immunizations Immunizations up to date: Yes Hx Diphtheria, Pertussis, Tetanus Vaccination: Yes Review of Systems - Review of Systems Constitutional: See HPI, Chills, Fever, Malaise, Other - fatigue EENT: See HPI, Nose congestion. denies: Ear pain Cardiovascular: denies: Chest pain, Palpitations, Orthopnea, Dyspnea, Syncope, Dizziness, Lightheaded Respiratory: Cough, Short of breath Gastrointestinal: denies: Abdominal pain, Diarrhea, Vomiting Musculoskeletal: No symptoms reported Skin: No symptoms reported. denies: Rash Hematologic/Lymphatic: No symptoms reported Neurological/Psychological: No symptoms reported -: Yes All other systems reviewed and negative Physical Exam - Vital signs Vitals: Temp Pulse Resp BP Pulse Ox 98.3 F 79 18 106/60 97 03/09/19 09:14 03/09/19 09:14 03/09/19 09:14 03/09/19 09:14 03/09/19 09:14 Interpretation: Normal - General General appearance: Appears well, Alert - HEENT Head: Normocephalic, Atraumatic Eyes: Normal Pupils: PERRL Ears: Normal External canal: Normal Tympanic membrane: Normal Sinus: Normal Nasal: Clear rhinorrhea Mouth/Lips: Normal Pharynx: Erythema, Post nasal drainage. No: Exudate, Retropharyngeal abscess, Tonsillar hypertrophy, Uvular edema, Potential airway comprom. Neck: Normal, Supple. No: Lymphadenopathy, Meningismus - Respiratory Respiratory status: No respiratory distress Chest status: Nontender. No: Accessory muscle use Breath sounds: Decreased air movement, Productive cough. No: Rales, Rhonchi, Stridor, Wheezing Chest palpation: Normal - Cardiovascular Rhythm: Regular Heart sounds: Normal auscultation Murmur: No - Abdominal Inspection: Normal Distension: No distension Bowel sounds: Normal Tenderness: Nontender Organomegaly: No organomegaly - Back Back: Normal, Nontender - Neurological Neuro grossly intact: Yes Cognition: Normal Orientation: AAOx4 [place] Coma Scale Eye Opening: Spontaneous [place] Coma Scale Verbal: Oriented [place] Coma Scale Motor: Obeys Commands [place] Coma Scale Total: 15 Speech: Normal Motor strength normal: LUE, RUE, LLE, RLE Sensory: Normal - Psychological Associated symptoms: Normal affect, Normal mood - Skin Skin Temperature: Warm Skin Moisture: Dry Skin Color: Normal Course - Re-evaluation Re-evalutation: Impression: Cough, ? evolving left lower lobe infiltrate. Will discharge with Abx, cough medicine. Encouraged to rest and push fluids. Patient agrees with the plan. PCP follow up. - Vital Signs Vital signs: Temp Pulse Resp BP Pulse Ox 98.2 F 73 18 137/69 H 95 03/09/19 11:40 03/09/19 11:40 03/09/19 09:30 03/09/19 11:40 03/09/19 11:40 Discharge - Discharge Clinical Impression: Cough Fatigue Qualifiers: Fatigue type: unspecified Qualified Code(s): R53.83 - Other fatigue Pneumonia Qualifiers: Pneumonia type: due to unspecified organism Condition: Stable Disposition: HOME, SELF-CARE Instructions: Pneumonia ([facility]) Additional Instructions: PUSH FLUIDS. COMPLETE ANTIBIOTICS. TAKE ALBUTEROL AND COUGH MEDICINE PRESCRIBED. REST. Prescriptions: Doxycycline Hyclate 100 mg PO BID #20 capsule Hydrocodone/Chlorphen P-Stirex [Hydrocodone-Chlorphen ER Susp] 5 ml PO BID #60 ml Albuterol Sulfate [Proair HFA Inhalation Aerosol 8.5 gm MDI] 2 puff IH Q4H PRN #1 mdi PRN Reason: Forms: Return to Work Referrals: BECKY TURNER MD [Primary Care Provider] - Follow up as needed
--- NOTE | 2019-03-09 11:30 | RADIOLOGY REPORT (SQ) ---
EXAM DESCRIPTION: CHEST 2 VIEWS COMPLETED DATE/TIME: 03/09/2019 11:18 am REASON FOR STUDY: cough, fatigue for one week COMPARISON: 11/23/2011 TECHNIQUE: Frontal and lateral radiographic views of the chest acquired. NUMBER OF VIEWS: Two view. LIMITATIONS: None. FINDINGS: LUNGS AND PLEURA: No opacities, masses or pneumothorax. No pleural effusion. MEDIASTINUM AND HILAR STRUCTURES: No masses or contour abnormalities. HEART AND VASCULAR STRUCTURES: Heart normal size. No evidence for failure. BONES: No acute findings. HARDWARE: None in the chest. OTHER: No other significant finding. IMPRESSION: NO SIGNIFICANT RADIOGRAPHIC FINDING IN THE CHEST. TECHNICAL DOCUMENTATION: JOB ID: [id number] [email or web address]- All Rights Reserved Reading location - IP/workstation name: [email or web address]
[2019-03-09 11:42] VITALS: BP 137/69
== END 2019-03-09 11:40 | disposition home or self-care (01) ==
LOC: ER 08:54
DX: R53.83 Other fatigue (principal); R05 Cough; R09.81 Nasal congestion; R50.9 Fever, unspecified; R06.02 Shortness of breath; F17.200 Nicotine dependence, unspecified, uncomplicated
CPT/HCPCS: 71046; 99283